=== PATIENT | female | born 1995 | race Caucasian/White ===

== ENCOUNTER 2020-11-08 12:22 | Emergency (ER) | payer OTHER ==
[2020-11-08 12:37] VITALS: BP 139/88; PULSE 77; TEMP 98.5; BMI 32.1
== END 2020-11-08 16:00 | disposition home or self-care (01) ==
LOC: JER 12:22
DX: R51.9 Headache, unspecified (principal)
CPT/HCPCS: 70450-TC; 99284-25

== ENCOUNTER 2024-05-13 19:53 | Emergency (ER) | payer SELFPAY ==
[2024-05-13 20:00] VITALS: TEMP 98.1; BMI 34.4
[2024-05-13] MEDS ORDERED: ONDANSETRON 4 MG/2 ML VIAL ONE (20:58)
[2024-05-13] MEDS ORDERED: ACETAMINOPHEN INJECTION 100 ML ONE (21:09)
[2024-05-13 21:15] LABS: BASO % 0.7 % (0-2.0); EOS % 0.1 % (0-4.5); HEMATOCRIT 41.6 % (32.4-45.2); HEMOGLOBIN 13.6 GM/dL (10.7-15.3); LYMPH % 23.7 % (8-40); MCH 28.6 pg (25.7-33.7); MCHC 32.7 g/dl (32.0-36.0); MEAN CELL VOLUME 87.5 fl (80-96); MEAN PLT VOLUME 8.1 fl (7.5-11.1); MONO % 2.8 % (3.8-10.2); NEUT % 72.7 % (42.8-82.8); PLATELET COUNT 405 10^3/uL (134-434); RBC 4.75 M/mm3 (3.60-5.2); RDW 14.7 % (11.6-15.6); WHITE BLOOD COUNT 11.5 K/mm3 (4.0-10.0)
[2024-05-13] MEDS: ONDANSETRON 4 MG/2 ML VIAL IVPUSH ONE (21:15)
[2024-05-13] MEDS: SODIUM CHLORIDE 0.9% 500 ML INFUS.BAG IV ONE (21:15)
[2024-05-13] MEDS: ACETAMINOPHEN 1000 MG/100 ML BAG IVPB ONE (21:15)
[2024-05-13 21:36] LABS: POTASSIUM 4.2 mmol/L (3.5-5.1)
[2024-05-13 21:39] LABS: ALBUMIN 4.4 g/dl (3.4-5.0); BLOOD UREA NITROGEN 8.4 mg/dL (7-18); CALCIUM 10.1 mg/dL (8.5-10.1)
[2024-05-13 21:42] LABS: CREATININE 0.6 mg/dL (0.55-1.3); PHOSPHOROUS 4.3 mg/dL (2.5-4.9)
[2024-05-13 21:44] LABS: BILIRUBIN,TOTAL 0.7 mg/dL (0.2-1); TOT PROT 8.8 g/dl (6.4-8.2)
[2024-05-13 23:05] VITALS: BP 149/84; PULSE 65; RESP 18
== END 2024-05-13 23:05 | disposition home or self-care (01) ==
LOC: JER 19:53
PROC: 3E033NZ Introduction of Analgesics, Hypnotics, Sedatives into Peripheral Vein, Percutaneous Approach (ICD-10-PCS; principal; 2024-05-13)
PROC: 3E033GC Introduction of Other Therapeutic Substance into Peripheral Vein, Percutaneous Approach (ICD-10-PCS; 2024-05-13)
DX: R11.2 Nausea with vomiting, unspecified (principal); R68.83 Chills (without fever)
CPT/HCPCS: 36415; 80053; 83690; 83735; 84100; 84443; 84702; 85025; 99284-25; J0131